=== PATIENT | male | born 1945 | race American Indian/Alaskan Native ===

== ENCOUNTER 2018-05-09 14:56 | Emergency (ER) | payer MEDICARE, OTHER ==
[2018-05-09 15:26] VITALS: BMI 48.8
[2018-05-09 15:31] VITALS: RESP 18
--- NOTE | 2018-05-09 15:41 | ED PDOC ---
Arrival/HPI - General Chief Complaint: Lower Extremity Problem/Injury Time Seen by Provider: 05/09/18 15:38 Historian: Patient - History of Present Illness Narrative History of Present Illness (Text): 05/09/18 15:39 73 yo morbidly obese male presents c/o mild L knee discomfort. States that he was sitting at the pmd's office, as he tried to get up and get onto his wheelchair, he slid down onto the floor on his knees. He reports that he did not fall. Denies any head injury, LOC, neck pain, back pain, trauma, injury, fever, other injury, numbness, decrease in ROM. PMD [place] Past Medical History - Cardiac Hx Hypertension: Yes - Pulmonary Hx Respiratory Disorders: No - Neurological Hx Neurological Disorder: No - HEENT Hx HEENT Disorder: No - Renal Hx Renal Disorder: No - Endocrine/Metabolic Hx Endocrine Disorders: No - Hematological/Oncological Hx Blood Disorders: No - Integumentary Hx Dermatological Disorder: No - Musculoskeletal/Rheumatological Hx Musculoskeletal Disorders: No - Gastrointestinal Hx Gastrointestinal Disorders: No - Genitourinary/Gynecological Hx Genitourinary Disorders: No - Psychiatric Hx Psychophysiologic Disorder: No Hx Substance Use: No Family/Social History Family/Social History: No Known Family HX Smoking Status: Never Smoked Hx Alcohol Use: No Hx Substance Use: No Allergies/Home Meds Allergies/Adverse Reactions: Allergies No Known Allergies Allergy (Verified 05/09/18 15:26) Home Medications: Home Meds Medication Instructions Recorded Confirmed Digoxin [Lanoxin] 0.25 mg PO DAILY 06/23/17 06/23/17 Gabapentin [Neurontin] 300 mg PO DAILY 06/23/17 06/23/17 Ibuprofen [Motrin Tab] 800 mg PO DAILY 06/23/17 06/23/17 Omeprazole 40 mg PO DAILY 06/23/17 06/23/17 Oxycodone HCl/Acetaminophen 1 each PO DAILY 06/23/17 06/23/17 [Percocet 7.5-325 mg Tablet] Review of Systems - Review of Systems Constitutional: absent: Fatigue, Weight Change, Fevers Musculoskeletal: Arthralgias. absent: Back Pain, Neck Pain, Joint Swelling Skin: absent: Rash, Pruritis, Skin Lesions Physical Exam Vital Signs Temp Pulse Resp BP Pulse Ox 05/09/18 15:27 98.3 F 80 18 126/80 98 Temperature: Afebrile Blood Pressure: Normal Pulse: Regular Respiratory Rate: Normal Appearance: Positive for: Well-Appearing, Non-Toxic, Comfortable Pain Distress: None Mental Status: Positive for: Alert and Oriented X 3 - Systems Exam Head: Present: Atraumatic, Normocephalic Lower Extremity: Present: Normal Inspection, NORMAL PULSES, Normal ROM, Neurovascularly Intact, Capillary Refill < 2 s. No: Edema, CALF TENDERNESS, Tenderness, Swelling, Erythema, Deformity, Temperature Abnormalties Neurological: Present: GCS=15, CN II-XII Intact, Speech Normal Skin: Present: Warm, Dry, Normal Color. No: Rashes Medical Decision Making ED Course and Treatment: 05/09/18 15:52 73 yo M c/o L knee pain after sliding off a chair at his pmd's office. Plan : - XR L knee Patient is refusing any analgesic medications at this time. Requesting for a sandwich to eat. XR L knee : +moderate djd with minimal joint space, no fracture, no dislocation , as read by PA. X-ray results discussed with the patient in great detail. Patient instructed to follow-up with pmd in 1-2 days without fail, and consider referral to ortho for further evaluation. Advised to take otc tylenol prn for pain. Rest, ice and elevate the joint. Return to the emergency room at any time for any new or worsening symptoms. Patient states he fully agrees with and understands discharge instructions. States that he agrees with the plan and disposition. Verbalized and repeated discharge instructions and plan. I have given the patient opportunity to ask any additional questions. - RAD Interpretation Radiology Orders: 05/09/18 15:38 KNEE LEFT 2 VIEWS (AP & LAT) [RAD] Stat - PA / [employer] / Resident Statement MD/DO has reviewed & agrees with the documentation as recorded. Disposition/Present on Arrival - Present on Arrival Any Indicators Present on Arrival: No History of DVT/PE: No History of Uncontrolled Diabetes: No Urinary Catheter: No History of Decub. Ulcer: No History Surgical Site Infection Following: None - Disposition Have Diagnosis and Disposition been Completed?: Yes Diagnosis: Left knee pain Disposition: HOME/ ROUTINE Disposition Time: 17:00 Patient Plan: Discharge Patient Problems: Current Active Problems Problem Status Onset Left knee pain Acute Condition: STABLE Discharge Instructions (ExitCare): Knee Pain (DC) Additional Instructions: Thank you for letting us take care of you today. You were treated for L knee pain. The emergency medical care you received today was directed at your acute symptoms. Take over the counter tylenol as needed for pain. Rest, ice and elevate. It may take several days for your symptoms to resolve. Return to the Emergency Department if your symptoms worsen, do not improve, or if you have any other problems. Please contact your doctor in 2 days for re-evaluation and follow up. Bring any paperwork you were given at discharge with you along with any medications you are taking to your follow up visit. Our treatment cannot replace ongoing medical care by a primary care provider (PCP) outside of the emergency department. Thank you for allowing the [facility] team to be part of your care today. If you had an X-Ray : A Radiologist will review the ED reading if any change in treatment is needed we will contact you. Forms: [employer] ([place])
--- NOTE | 2018-05-09 17:49 | RAD ---
Date of service: 05/09/2018 PROCEDURE: Left Knee Radiographs. HISTORY: Posttraumatic pain COMPARISON: None. FINDINGS: BONES: No acute fracture. Proliferative hypertrophic changes emanating from the femoral condyle and tibial plateau regions. JOINTS: Tricompartmental degenerative changes most severe medial compartment. JOINT EFFUSION: None. OTHER FINDINGS: None. IMPRESSION: Tricompartmental degenerative change. No acute findings.
[2018-05-09 19:30] VITALS: BP 120/88; PULSE 79; TEMP 98; O2SAT 98
== END 2018-05-09 18:55 | disposition home or self-care (01) ==
LOC: ED 14:56
DX: M25.562 Pain in left knee (principal)